=== PATIENT | male | born 1965 | race Caucasian/White ===

== ENCOUNTER → 2016-05-17 | Outpatient (CLI) | payer BC ==
[2016-05-17 17:23] LABS: CHLORIDE,CL 107 mmol/L (98-110); SODIUM,NA 142 mmol/L (136-146)
== END ==
LOC: MW.CHFP 16:42
PROVIDERS: ATTEND Emergency Medicine
DX: R63.4 Abnormal weight loss (principal); R35.8 Other polyuria; R73.09 Other abnormal glucose
CPT/HCPCS: 36415; 80048; 81001; 83036; 85025

== ENCOUNTER → 2016-05-28 | Outpatient (CLI) | payer BC | LOC: MW.MNT 14:08 | PROVIDERS: ATTEND Emergency Medicine | DX: Z71.3 Dietary counseling and surveillance (principal); E11.65 Type 2 diabetes mellitus with hyperglycemia | CPT/HCPCS: 97802 ==

== ENCOUNTER 2022-11-26 20:50 | Emergency (ER) | payer BC | END 2022-11-26 21:46 | disposition home or self-care (01) | LOC: MW.ED 20:50 | DX: S01.81XA Laceration without foreign body of other part of head, initial encounter (principal); W01.198A Fall on same level from slipping, tripping and stumbling with subsequent striking against other object, initial encounter | CPT/HCPCS: 12013; 99282; 99283 ==

== ENCOUNTER 2023-10-09 08:01 | Day surgery (SDC) | payer BC ==
[~2023-10-09 08:01] MED LIST: Sodium Chloride 0.9% 10 ML Syringe FLUSH PRN; Sodium Chloride 0.9% 2.5 ML Syringe FLUSH PRN; Sodium Chloride 0.9% 20 ML SDV IV PRN
[2023-10-09] MEDS: Lactated Ringers 1,000 ML IV SCH (08:35)
[2023-10-09] MEDS ORDERED: Propofol 200 MG/20 ML SDV ONE ×2 (09:28→10:05)
[2023-10-09] MEDS ORDERED: Lidocaine 2% 5 ML SDV ONE (09:30)
== END 2023-10-09 11:10 | disposition home or self-care (01) ==
LOC: MW.SDS 08:01
PROVIDERS: ATTEND Surgery
DX: Z12.11 Encounter for screening for malignant neoplasm of colon (principal); D12.3 Benign neoplasm of transverse colon; K57.30 Diverticulosis of large intestine without perforation or abscess without bleeding; E11.9 Type 2 diabetes mellitus without complications; I10 Essential (primary) hypertension; F41.9 Anxiety disorder, unspecified; Z79.4 Long term (current) use of insulin; Z79.84 Long term (current) use of oral hypoglycemic drugs; Z79.899 Other long term (current) drug therapy
CPT/HCPCS: 45380; 82947; J2704; J7120; J3490

== ENCOUNTER 2024-03-19 21:42 | Emergency (ER) | payer BC ==
[2024-03-19] MEDS: Tamsulosin 0.4 MG Cap.ER PO ONE (22:41)
[2024-03-19 22:45] LABS: BASOPHILS ABSOLUTE AUTO 0.06 K/uL (0.00-0.20); BASOPHILS PERCENT AUTO 0.6 % (0.0-1.0); EOSINOPHILS ABSOLUTE AUTO 0.04 K/uL (0.00-0.45); EOSINOPHILS PERCENT AUTO 0.4 % (0.0-6.0); HEMATOCRIT 41.9 % (42.0-52.0); HEMOGLOBIN 14.6 g/dL (14.0-18.0); IMMATURE GRAN ABSOLUTE AUTO 0.03 K/uL (0.00-0.05); IMMATURE GRAN PERCENT AUTO 0.3 % (0.0-0.4); LYMPHOCYTES ABSOLUTE AUTO 2.05 K/uL (1.00-4.80); MEAN CORPUSCULAR HEMOGLOBIN 32.1 pg (28.0-32.0); MEAN CORPUSCULAR HGB CONC 34.8 g/dL (32.0-36.0); MEAN CORPUSCULAR VOLUME 92.1 fL (83.0-99.0); MEAN PLATELET VOLUME 10.1 fL (9.4-12.4); MONOCYTES ABSOLUTE AUTO 0.79 K/uL (0.00-0.80); MONOCYTES PERCENT AUTO 8.1 % (0.0-8.0); NEUTROPHILS ABSOLUTE AUTO 6.81 K/uL (1.80-7.70); NEUTROPHILS PERCENT AUTO 69.6 % (41.0-71.0); PLATELET COUNT,PLT 199 K/uL (150-400); RED BLOOD CELL COUNT 4.55 M/uL (4.52-5.90); WHITE BLOOD CELL COUNT,WBC 9.78 K/uL (3.9-11.3)
[2024-03-19] MEDS: Ondansetron 4 MG/2 ML SDV IVPUSH ONE (22:46)
[2024-03-19] MEDS: Ketorolac 30 MG/ML SDV IVPUSH ONE (22:46)
[2024-03-19] MEDS: Sodium Chloride 0.9% 10 ML Syringe FLUSH PRN (22:47)
[2024-03-19] MEDS: Acetaminophen 500 MG Tab PO ONE (22:47)
[2024-03-19] MEDS: Morphine 2 MG/ML SYRINGE IVPUSH ONE (22:47)
[2024-03-19 23:34] LABS: A/G RATIO 1.1 (0.9-1.6); ALBUMIN 3.9 g/dL (3.4-5.0); BILIRUBIN TOTAL 0.7 mg/dL (0.2-1.0); CALCIUM 9.6 mg/dL (8.5-10.1); CARBON DIOXIDE,CO2 29.2 mmol/L (21.0-32.0); EST CRCL DRUG DOSING (CG) 85.14 mL/min; PROTEIN TOTAL,TP 7.6 g/dL (6.4-8.2)
[2024-03-19] MEDS: Iopamidol 755 MG/ML 500 ML Multipack Bottle IVPUSH ONE ×2 (23:47→23:54)
== END 2024-03-20 01:23 | disposition home or self-care (01) ==
LOC: MW.ED 21:42
DX: N13.30 Unspecified hydronephrosis (principal); I10 Essential (primary) hypertension; E11.9 Type 2 diabetes mellitus without complications; Z90.89 Acquired absence of other organs; Z87.448 Personal history of other diseases of urinary system; Z96.0 Presence of urogenital implants; Z79.4 Long term (current) use of insulin; Z79.84 Long term (current) use of oral hypoglycemic drugs; Z79.899 Other long term (current) drug therapy
CPT/HCPCS: 36415; 74177; 80053; 85025; 96374; 96375; 99284; A9270; J1885; J2270; J2405; Q9967